=== PATIENT | female | born 1970 | race Caucasian/White ===

== ENCOUNTER 2020-04-19 14:34 | Outpatient (REF) | payer OTHER, SELFPAY | END 2020-04-19 14:35 | disposition home or self-care (01) | LOC: HO.LAB 14:34 | PROVIDERS: PCP Internal Medicine; Visit Provider Internal Medicine | DX: Z20.828 Contact with and (suspected) exposure to other viral communicable diseases (principal) | CPT/HCPCS: C9803; U0003 ==

== ENCOUNTER 2020-06-15 12:11 | Outpatient (REF) | payer OTHER, SELFPAY | END 2020-06-15 12:12 | disposition home or self-care (01) | LOC: HO.LAB 12:11 | PROVIDERS: Visit Provider Internal Medicine | DX: Z20.822 Contact with and (suspected) exposure to COVID-19 (principal) | CPT/HCPCS: 36415; C9803; U0003; U0005 ==

== ENCOUNTER 2023-10-28 15:32 | Emergency (ER) | payer BC, SELFPAY ==
--- NOTE | ~2023-10-28 | XR_ITS ---
EXAMINATION: XR HAND, RIGHT CLINICAL INFORMATION: Laceration COMPARISON: None available. TECHNIQUE: Three views of the right hand. FINDINGS: Soft tissue injury involving the thenar eminence. No underlying osseous abnormality. A radiopaque foreign body projects within the skin at the ulnar aspect of the base of the third digit. Clinical correlation required. Degenerative changes in the interphalangeal joints likely osteoarthritis. XR/XR hand RT 2V IMPRESSION: Soft tissue injury near the thenar eminence without underlying osseous abnormality. Radiopaque foreign body projects over the webbing between the third and fourth digits.
[2023-10-28 15:58] VITALS: BP 100/65; PULSE 81; RESP 16; TEMP 36.4; O2SAT 96; BMI 24.8
--- NOTE | 2023-10-28 17:43 | ED_ITS ---
HPI - Wound/Laceration General Chief Complaint: Wound/Laceration Stated Complaint: hand lac Time Seen by Provider: 10/28/23 17:33 Source: patient Mode of arrival: ambulatory Limitations: no limitations History of Present Illness ED Provider: Leonarda Sunshine APRN HPI narrative: 53 yo female right hand dominant here with complaints of laceration to the right hand. Patient was cutting a hose on her car with a box hinge and lock attacher with her left hand when her hand slipped causing a laceration. No associated numbness/tingling. Tetanus updated Related Data Allergies Allergy/AdvReac Type Severity Reaction Status Date / Time No Known Allergies Allergy Verified 10/28/23 16:01 Review of Systems 2 Review of Systems: Yes all other systems are reviewed and are negative Constitutional: Constitutional: Reports no additional constitutional complaints, Denies body ache(s), Denies chills, Denies fever(s), Denies headache(s) and Denies weakness Eyes: Eyes: Reports no additional eye complaints and Denies change in vision ENT: Reports system reviewed and no additional complaints, except as documented, Denies dizziness, Denies headache(s), Denies nasal congestion, Denies nasal discharge and Denies neck pain Cardiovascular: Cardiovascular: Reports no additional cardiovascular complaints, Denies chest pain, Denies leg edema and Denies dyspnea Respiratory: Respiratory: Reports no additional respiratory complaints, Denies cough and Denies dyspnea Gastrointestinal: Gastrointestinal: Reports no additional gastrointestinal complaints, Denies abdominal pain, Denies diarrhea, Denies nausea and Denies vomiting Genitourinary: Genitourinary: Reports no additional female genitourinary complaints and Denies urinary incontinence Musculoskeletal: Musculoskeletal: Reports no additional musculoskeletal complaints, Denies back pain, Denies arthralgias, Denies joint swelling, Denies neck pain, Denies numbness and Denies tingling Integumentary/Breasts: Skin/Breast: Reports system reviewed and no additional complaints, except as docu, Denies rash and Reports wounds Neurologic: Reports system reviewed and no additional complaints, except as documented, Denies Abnormal speech present, Denies dizziness, Denies headache(s), Denies numbness, Denies tingling and Denies weakness PMFSH Past Medical History Attestation statement: The following information was validated with the patient. Source: old records reviewed and nursing notes reviewed Social History Social History Advance Directives: No Advance Directives Information Provided: No Do you have a plan to hurt others: No Plan Physical Exam 2 Vital Signs: Vital Signs: Last Vital Signs Temp 97.6 F 10/28/23 18:28 Pulse 81 10/28/23 18:28 Resp 16 10/28/23 18:28 BP 100/65 10/28/23 18:28 Pulse Ox 96 10/28/23 18:28 O2 Del Method Room Air 10/28/23 18:28 BMI result Body Mass Index 24.8 Const: General: cooperative, healthy appearing, comfortable and no acute distress Orientation/consciousness: patient oriented x3 Limitations: no limitations HEENT: Head: Yes normal to inspection Ears: hearing grossly normal bilaterally General nose exam: Normal external nose present Face and sinus: Yes normal facial exam Mouth: Normal oral and palatal mucosa present Throat: Yes posterior oropharynx normal Eyes: General: appearance normal, both eyes and all related structures P upils: Equal, round and reactive pupils present Neck: Neck: Yes normal visual inspection Chest: Chest palpation & inspection: normal inspection of the chest Resp: Effort & Inspection: normal respiratory effort Auscultation: clear to auscultation bilaterally Cardio: Rate: regular rate Rhythm: regular rhythm Peripheral pulses: P eripheral pulses 2+ throughout GI: Inspection: Yes normal to inspection Palpation (GI): Soft to palpation and nontender Auscultation: normal bowel sounds Back/Spine/Pelvis: Thoracic/Lumbar Spine: thoracic and lumbar spine normal to inspection Skin: General skin exam: no rashes or lesions noted Neuro: General: patient oriented x3, no focal motor deficits and normal sensation to monofilament Cranial nerves: Yes Equal, round and reactive pupils present Cognition (Neuro): normal cognition Speech: No Abnormal speech present Gait exam (Neuro): Normal gait present Motor exam (neuro): 5/5 motor strength present throughout Extrem: Hand/finger images: 1. 6cm laceration noted. Bleeding controlled. Full range of motion of the hand and digit with no difficulty. Normal sensation. Medications Administered Discontinued Medications Generic Name Dose Route Start Last Admin Trade Name Freq PRN Reason Stop Dose Admin Lidocaine HCl 2 ml 10/28/23 17:42 10/28/23 17:46 Lidocaine Hcl 1 % Mpf 2 Ml Vial INFILTRATI 10/28/23 17:43 2 ml ONCE ONE Administration Lidocaine HCl 2 ml 10/28/23 17:42 10/28/23 17:47 Lidocaine Hcl 1 % Mpf 2 Ml Vial INFILTRATI 10/28/23 17:43 2 ml ONCE ONE Administration Medical Decision Making Medical Decision Making [facility] Narrative: 53 yo female right hand dominant here with complaints of laceration to the right hand. Patient was cutting a hose on her car with a box hinge and lock attacher with her left hand when her hand slipped causing a laceration. No associated numbness/tingling. Tetanus updated 6cm laceration noted. Bleeding controlled. Full range of motion of the hand and digit with no difficulty. Normal sensation. Differential Diagnosis Differential Diagnoses: The differential diagnosis associated with the presentation includes laceration low suspicion for vascular injury, bony abnormality, retained FB Admission/Observation Consideration of admission/observation: Escalation of care including admission/observation considered low suspicion for vascular injury, bony abnormality, retained FB Requiring advanced imaging, urgent orthopedic consultation Independent Interpretation I performed an independent interpretation of an: Plain X-Ray Interpretation: I independently reviewed the x-ray and agree with the rad report Radiology Impression Discussion of test interpretation with radiology: I have reviewed the radiologist's reading. Radiologist Impression: [address] [id number] XRay Report Signed Patient: Meredith Smiley MR#: [id number] : 1970 Acct:[id number] Age/Sex: 53 / F ADM Date: 10/28/23 Loc: .ED Attending Dr: Ordering Physician: Generic ED Physician Date of Service: 10/28/23 Procedure(s): XR hand RT 2V Accession Number(s): [id number] cc: ALYSSA CHRISTENSEN MD; Generic ED Physician~ EXAMINATION: XR HAND, RIGHT CLINICAL INFORMATION: Laceration COMPARISON: None available. TECHNIQUE: Three views of the right hand. FINDINGS: Soft tissue injury involving the thenar eminence. No underlying osseous abnormality. A radiopaque foreign body projects within the skin at the ulnar aspect of the base of the third digit. Clinical correlation required. Degenerative changes in the interphalangeal joints likely osteoarthritis. XR/XR hand RT 2V IMPRESSION: Soft tissue injury near the thenar eminence without underlying osseous abnormality. Radiopaque foreign body projects over the webbing between the third and fourth digits. Tests considered The following testing was considered but not selected: low suspicion for vascular injury, bony abnormality, retained FB requiring advanced imaging Prescription Management I considered prescription management with: Antibiotic Procedures Laceration Laceration 1: Site: hand Side (If applicable): right Size (cm): 6 Description: linear Depth: simple, single layer Local Anesthetic: lidocaine 1% Amount of anesthesia used (mL): 4 Pre-repair: wound explored and irrigated extensively (2L NS) Skin layer closed with: vicryl Size (cm): 5-0 Number of sutures: 6 Technique: simple, interrupted Discharge Plan Discharge Clinical Impression: Laceration Patient Disposition: Home, Self-Care Instructions: Finger Laceration (ED) Additional Instructions: sutures removed in 7-10 days Water may run over the wound but no soaking in water Motrin or tylenol Referrals: Alyssa Christensen MD [Primary Care Provider] - 1 week Interventions: ED Discharge Assessment Last Done: 10/28/23 18:28 Discharge Date/Time: 10/28/23 18:30 Print Language: Kenyan
[2023-10-28] MEDS: Lidocaine HCl 1 % MPF 2 ML VIAL INFILTRATI ×2 (17:46→17:47)
[2023-10-28 18:28] VITALS: BP 100/65; PULSE 81; RESP 16; TEMP 36.4; O2SAT 96
== END 2023-10-28 18:30 | disposition home or self-care (01) ==
PROVIDERS: Emergency Provider Internal Medicine; PCP Internal Medicine
DX: S61.412A Laceration without foreign body of left hand, initial encounter (principal); W26.0XXA Contact with knife, initial encounter; Y93.89 Activity, other specified; Y92.9 Unspecified place or not applicable; Y99.9 Unspecified external cause status
CPT/HCPCS: 12002; 73120; 99283; 99284